=== PATIENT | male | born 1980 | race Caucasian/White ===

== ENCOUNTER → 2016-02-18 | Outpatient (CLI) | payer OTHER ==
[~2016-02-18] MED LIST: BISA-16 PO; BUPR8MIS PO; LISI-461 PO; LORA24TA7 PO; MULTTAB58 PO
== END | disposition home or self-care (01) ==
LOC: C.PATHSPEC 17:44
PROVIDERS: ATTEND Urology
DX: Z30.2 Encounter for sterilization (principal)

== ENCOUNTER 2022-07-31 18:43 | Inpatient (IN) ==
--- NOTE | 2022-07-31 19:08 | Emergency Department Note ---
Impression & Plan Parainfluenza virus infection, Syncope, Alcohol use disorder, Chronic prescription opiate use, Sepsis ED Provider Note INFORMANT: Patient and patient's ED PROVIDER(S): Casa Johnson DO CHIEF COMPLAINT: Fever, syncope PLAN: Disposition: Admission Outpatient prescription management: [none] Discussion with: I spoke with the hospitalist, who will see the patient for admission/observation and further evaluation and consultation. MEDICAL DECISION MAKING: This is a 41-year-old male who presents to the ED with a chief complaint of a syncopal episode. The patient provides some of the history as does the . The patient states that he has been having allergy or cold-like symptoms recently over the past few days. He reports runny nose, sore throat and conges tion. The patient reports symptoms of feeling dehydrated and lightheaded for the past hour or so. He had subjective fevers today and was sweating a lot. He also had diarrhea the past couple of days. According to the , the patient was due to the bathroom after just getting up off the couch. He seemed to be walking wobbly and he suddenly passed out. She helped him to the ground. He did not get injured. He had a brief loss of consciousness for just seconds. He was sweaty at that time. She states that EMS was called. No tonic-clonic seizure-like activity. Did not bite his tongue or have incontinence. The did do a COVID test earlier today. This was at home and was negative. He reports a little chest pain. Does use Suboxone. Has history of hypertension. His vital signs reveal temperature of 38.1. Oxygen saturations are slightly low at 94%. Respiratory rate was 21. Blood pressure is normal. Heart rate was 112. Lungs are clear. Heart is tachycardic rate and regular rhythm. No rashes. No tick exposures. No headache. No meningismus. Throat is slightly dry. Complains of feeling thirsty. Abdomen is soft nontender. No injury. The patient does admit to drinking about 12 beers a day. The patient's EKG shows sinus rhythm with occasional PVC. Potassium was 3.3. Lactic acid is elevated 3.8. Magnesium is low at 1.0. AST is elevated 205. Glucose is 175. Chest x- ray shows possible left lower lobe pneumonia. Procalcitonin is elevated which would correlate with a bacterial infection at 3.3. CBC did not show concerning leukocytosis or anemia. Patient's nasal swab come back positive for the parainfluenza virus. Troponin was negative for myocardial infarction or myocarditis. Alcohol level is 138. Lyme test was negative as was anaplasmosis. The patient was seen by the hospitalist for further evaluation and care. Patient was treated with IV antibiotics as well as IV fluids and IV Zofran. He was also given some IV Tylenol. He was given at least 30 cc/kg of IV fluids. I do not feel the symptoms that the patient had at home were related to seizure activity. Triage Nursing notes reviewed. Vital Signs: reviewed Prior /Outside records reviewed: [none] Differential diagnosis: Differential includes acute coronary syndrome, myocardial infarction, CVA, TIA, anemia, infection, pneumonia, UTI, pyelonephritis, poor nutrition, dehydration, electrolyte disturbance,hypoglycemia. Diagnostics, as interpreted by me: 12 lead ECG: Sinus rhythm at a rate of 91 with a PVC. No ST elevation. Normal QTc Cardiac Monitoring ordered: Sinus rhythm in the 90s. Medical decision rules: [none] Imaging studies: Chest x-ray: Questionable left lower lobe pneumonia Procedures: none. Critical care: none. HPI: See MDM above. PAST MEDICAL HISTORY: See Below PAST SURGICAL HISTORY: See Below SOCIAL HISTORY: See Below HOME MEDICATIONS:See Below ALLERGIES: See Below VITALS: See Below PHYSICAL EXAMINATION: See MDM for positive findings otherwise unremarkable. CONSTITUTIONAL/VITAL SIGNS: Reviewed GENERAL:done as appropriate INTEGUMENTARY: done as appropriate HEAD: done as appropriate EYES: done as appropriate RESPIRATORY: done as appropriate CARDIOVASCULAR:done as appropriate GI/ABDOMEN:done as appropriate EXTREMITIES: done as appropriate NEUROLOGICAL: done as appropriate PSYCHIATRIC:done as appropriate MUSCULOSKELETAL:done as appropriate TRIAGE NURSING DOCUMENTATION REVIEWED. Past Med/Surg History Social History Smoking Status: Current every day smoker Tobacco Type: E-cigarettes / Vaping Preferred Language: Indian Feels Safe at Home: Yes Allergies Allergies Allergy/AdvReac Type Severity Reaction Status Date / Time pollen extracts Allergy Intermediate SNEEZING, Verified 07/31/22 20:03 CONGESTION Home Meds Home Medications Medication Instructions Recorded Confirmed Unknown B/P Med 1 tab PO DAILY 07/31/22 07/31/22 buprenorphine 8 mg-naloxone 2 mg 1 film buccal DAILY 07/31/22 07/31/22 sublingual film (Suboxone) montelukast 10 mg tablet 10 mg PO DAILY 07/31/22 07/31/22 (Singulair) Results & Data (ED) Vital Signs Vital Signs - 24 hr 07/31/22 18:49 07/31/22 18:54 07/31/22 19:35 Temperature 38.1 C H Temperature Source Oral Pulse Rate 112 H 114 H Pulse Rhythm Regular Pulse Strength Normal Respiratory Rate 21 Respiratory Effort / Characteristics Non-Labored Spontaneous Respiratory Depth Normal Respiratory Pattern Regular Blood Pressure 138/82 Blood Pressure Mean 100 Blood Pressure Position Lying Pulse Oximetry 94 94 Oxygen Delivery Method Room Air Room Air Sepsis Recent Fever Within 48 Hours Yes Sepsis New/Unexplained Change in Mental Status N/A Sepsis Action Taken by Nursing Physician Notified 07/31/22 19:00 07/31/22 19:30 07/31/22 20:00 Temperature Temperature Source Pulse Rate 105 H 105 H 103 H Pulse Rhythm Pulse Strength Respiratory Rate 14 18 20 Respiratory Effort / Characteristics Respiratory Depth Respiratory Pattern Blood Pressure 128/86 132/85 138/82 Blood Pressure Mean 100 100 100 Blood Pressure Position Pulse Oximetry 94 95 92 Oxygen Delivery Method Sepsis Recent Fever Within 48 Hours Sepsis New/Unexplained Change in Mental Status Sepsis Action Taken by Nursing 07/31/22 20:30 07/31/22 20:38 07/31/22 21:01 Temperature 37.7 C H Temperature Source Pulse Rate 85 92 H Pulse Rhythm Pulse Strength Respiratory Rate 20 20 Respiratory Effort / Characteristics Respiratory Depth Respiratory Pattern Blood Pressure 137/79 132/72 Blood Pressure Mean 98 92 Blood Pressure Position Pulse Oximetry 92 94 Oxygen Delivery Method Sepsis Recent Fever Within 48 Hours Sepsis New/Unexplained Change in Mental Status Sepsis Action Taken by Nursing Laboratory Data 07/31/22 19:07 07/31/22 19:07 Lab Results 07/31/22 07/31/22 07/31/22 Range/Units 19:07 19:07 19:07 WBC 7.56 (4.8-10.8) K/ul RBC 4.21 L (4.70-6.10) M/uL Hgb 14.9 (14.0-18.0) g/dl Hct 42.0 (42.0-52.0) % MCV 99.8 (80.0-100.0) fL MCH 35.4 H (25.0-34.0) pg MCHC 35.5 (32.0-36.0) g/dL RDW Std Deviation 45.6 (36.4-46.3) fL RDW Coeff of Cyndy 12.4 (11.5-14.5) % Plt Count 51 L (130-400) K/uL MPV 11.4 (9.4-12.4) fL Immature Gran % (Auto) 0.7 % Neut % (Auto) 85.9 % Lymph % (Auto) 4.4 % [place] % (Auto) 8.9 % Eos % (Auto) 0.0 % Baso % (Auto) 0.1 % Neut # (Auto) 6.50 (1.40-6.50) K/uL Lymph # (Auto) 0.33 L (1.2-3.4) K/uL [place] # (Auto) 0.67 H (0.11-0.59) K/uL Eos # (Auto) 0.00 (0-0.50) K/uL Baso # (Auto) 0.01 (0-0.2) K/uL Immature Gran # (Auto) 0.05 (0.01-0.20) K/uL PT (9.0-12.0) Seconds INR (0.9-1.1) APTT (21.0-31.0) Seconds PTT Ratio Sodium 132 L (136-145) mmol/L Potassium 3.3 L (3.5-5.1) mmol/L Chloride 98 (98-107) mmol/L Carbon Dioxide 20 L (21-32) mmol/L Anion Gap 14 H (3-11) BUN 5 L (6-23) mg/dl Creatinine 0.70 (0.6-1.4) mg/dl Est Cr Clr Drug Dosing 142.7 ml/min Est GFR ( Amer) 134.0 ml/min Est GFR (Non-Af Amer) 115.6 ml/min BUN/Creatinine Ratio 7.1 L (10-20) Glucose 175 H (70-99(Fasting)) mg/dl Lactate 3.8 H* (0.4-2.0) mmol/L Calcium 8.4 L (8.6-10.3) mg/dl Magnesium 1.0 L (1.7-2.4) mg/dl Total Bilirubin 0.7 (0.2-1.0) mg/dl Direct Bilirubin 0.3 H (0-0.2) mg/dl AST 203 H (13-39) U/L ALT 52 (7-52) U/L Alkaline Phosphatase 136 H (34-104) U/L Troponin I High Sens 10.4 (0-20) pg/ml Total Protein 7.4 (6.0-8.3) gm/dl Albumin 4.0 (3.4-5.0) gm/dl Procalcitonin (0-0.5) ng/ml Urine Color Urine Appearance (Clear) Urine pH (4.5-7.5) Ur Specific [place] (1.000-1.030) Urine Protein (Negative) Urine Glucose (UA) (Negative) Urine Ketones (Negative) Urine Blood (Negative) Urine Nitrite (Negative) Urine Bilirubin (Negative) Urine Urobilinogen (Negative) Ur Leukocyte Esterase (Negative) Urine WBC (Auto) (0-5) /hpf Urine RBC (Auto) (0-4) /hpf U Hyaline Cast (Auto) (0-5) /lpf U Epithel Cells (Auto) (0-5) /lpf Urine Bacteria (Auto) (Negative) Ethyl Alcohol mg/dL (<10.0) mg/dl Adenovirus (PCR) (NotDetected) Anaplasma Smear See Comment B. pertussis DNA (PCR) (NotDetected) B.parapertussis DNA PCR (NotDetected) Lyme Disease IgG Ab (Negative) Lyme Disease IgM Ab (Negative) C. pneumoniae DNA (PCR) (NotDetected) Coronavirus OC43 (PCR) (NotDetected) Coronavirus HKU1 (PCR) (NotDetected) Coronavirus 229E (PCR) (NotDetected) SARS-CoV-2 (PCR) (NotDetected) Coronavirus NL63 (PCR) (NotDetected) Human Metapneumovir PCR (NotDetected) Influenza Type A (PCR) (NotDetected) Influenza Type B (PCR) (NotDetected) M. pneumoniae (PCR) (NotDetected) Parainfluenza 1 (PCR) (NotDetected) Parainfluenza 2 (PCR) (NotDetected) Parainfluenza 3 (PCR) (NotDetected) Parainfluenza 4 (PCR) (NotDetected) RSV (PCR) (NotDetected) Entero/Rhino (PCR) (NotDetected) 07/31/22 07/31/22 07/31/22 Range/Units 19:07 19:07 19:07 WBC (4.8-10.8) K/ul RBC (4.70-6.10) M/uL Hgb (14.0-18.0) g/dl Hct (42.0-52.0) % MCV (80.0-100.0) fL MCH (25.0-34.0) pg MCHC (32.0-36.0) g/dL RDW Std Deviation (36.4-46.3) fL RDW Coeff of Cyndy (11.5-14.5) % Plt Count (130-400) K/uL MPV (9.4-12.4) fL Immature Gran % (Auto) % Neut % (Auto) % Lymph % (Auto) % [place] % (Auto) % Eos % (Auto) % Baso % (Auto) % Neut # (Auto) (1.40-6.50) K/uL Lymph # (Auto) (1.2-3.4) K/uL [place] # (Auto) (0.11-0.59) K/uL Eos # (Auto) (0-0.50) K/uL Baso # (Auto) (0-0.2) K/uL Immature Gran # (Auto) (0.01-0.20) K/uL PT (9.0-12.0) Seconds INR (0.9-1.1) APTT (21.0-31.0) Seconds PTT Ratio Sodium (136-145) mmol/L Potassium (3.5-5.1) mmol/L Chloride (98-107) mmol/L Carbon Dioxide (21-32) mmol/L Anion Gap (3-11) BUN (6-23) mg/dl Creatinine (0.6-1.4) mg/dl Est Cr Clr Drug Dosing ml/min Est GFR ( Amer) ml/min Est GFR (Non-Af Amer) ml/min BUN/Creatinine Ratio (10-20) Glucose (70-99(Fasting)) mg/dl Lactate (0.4-2.0) mmol/L Calcium (8.6-10.3) mg/dl Magnesium (1.7-2.4) mg/dl Total Bilirubin (0.2-1.0) mg/dl Direct Bilirubin (0-0.2) mg/dl AST (13-39) U/L ALT (7-52) U/L Alkaline Phosphatase (34-104) U/L Troponin I High Sens (0-20) pg/ml Total Protein (6.0-8.3) gm/dl Albumin (3.4-5.0) gm/dl Procalcitonin 3.83 H (0-0.5) ng/ml Urine Color Urine Appearance (Clear) Urine pH (4.5-7.5) Ur Specific [place] (1.000-1.030) Urine Protein (Negative) Urine Glucose (UA) (Negative) Urine Ketones (Negative) Urine Blood (Negative) Urine Nitrite (Negative) Urine Bilirubin (Negative) Urine Urobilinogen (Negative) Ur Leukocyte Esterase (Negative) Urine WBC (Auto) (0-5) /hpf Urine RBC (Auto) (0-4) /hpf U Hyaline Cast (Auto) (0-5) /lpf U Epithel Cells (Auto) (0-5) /lpf Urine Bacteria (Auto) (Negative) Ethyl Alcohol mg/dL 138.7 H (<10.0) mg/dl Adenovirus (PCR) (NotDetected) Anaplasma Smear Cancelled B. pertussis DNA (PCR) (NotDetected) B.parapertussis DNA PCR (NotDetected) Lyme Disease IgG Ab Negative (Negative) Lyme Disease IgM Ab Negative (Negative) C. pneumoniae DNA (PCR) (NotDetected) Coronavirus OC43 (PCR) (NotDetected) Coronavirus HKU1 (PCR) (NotDetected) Coronavirus 229E (PCR) (NotDetected) SARS-CoV-2 (PCR) (NotDetected) Coronavirus NL63 (PCR) (NotDetected) Human Metapneumovir PCR (NotDetected) Influenza Type A (PCR) (NotDetected) Influenza Type B (PCR) (NotDetected) M. pneumoniae (PCR) (NotDetected) Parainfluenza 1 (PCR) (NotDetected) Parainfluenza 2 (PCR) (NotDetected) Parainfluenza 3 (PCR) (NotDetected) Parainfluenza 4 (PCR) (NotDetected) RSV (PCR) (NotDetected) Entero/Rhino (PCR) (NotDetected) 07/31/22 07/31/22 07/31/22 Range/Units 19:10 19:20 20:30 WBC (4.8-10.8) K/ul RBC (4.70-6.10) M/uL Hgb (14.0-18.0) g/dl Hct (42.0-52.0) % MCV (80.0-100.0) fL MCH (25.0-34.0) pg MCHC (32.0-36.0) g/dL RDW Std Deviation (36.4-46.3) fL RDW Coeff of Cyndy (11.5-14.5) % Plt Count (130-400) K/uL MPV (9.4-12.4) fL Immature Gran % (Auto) % Neut % (Auto) % Lymph % (Auto) % [place] % (Auto) % Eos % (Auto) % Baso % (Auto) % Neut # (Auto) (1.40-6.50) K/uL Lymph # (Auto) (1.2-3.4) K/uL [place] # (Auto) (0.11-0.59) K/uL Eos # (Auto) (0-0.50) K/uL Baso # (Auto) (0-0.2) K/uL Immature Gran # (Auto) (0.01-0.20) K/uL PT 11.2 (9.0-12.0) Seconds INR 1.0 (0.9-1.1) APTT 29.9 (21.0-31.0) Seconds PTT Ratio 1.1 Sodium (136-145) mmol/L Potassium (3.5-5.1) mmol/L Chloride (98-107) mmol/L Carbon Dioxide (21-32) mmol/L Anion Gap (3-11) BUN (6-23) mg/dl Creatinine (0.6-1.4) mg/dl Est Cr Clr Drug Dosing ml/min Est GFR ( Amer) ml/min Est GFR (Non-Af Amer) ml/min BUN/Creatinine Ratio (10-20) Glucose (70-99(Fasting)) mg/dl Lactate (0.4-2.0) mmol/L Calcium (8.6-10.3) mg/dl Magnesium (1.7-2.4) mg/dl Total Bilirubin (0.2-1.0) mg/dl Direct Bilirubin (0-0.2) mg/dl AST (13-39) U/L ALT (7-52) U/L Alkaline Phosphatase (34-104) U/L Troponin I High Sens (0-20) pg/ml Total Protein (6.0-8.3) gm/dl Albumin (3.4-5.0) gm/dl Procalcitonin (0-0.5) ng/ml Urine Color Yellow Urine Appearance Turbid A (Clear) Urine pH 6.5 (4.5-7.5) Ur Specific [place] 1.009 (1.000-1.030) Urine Protein Negative (Negative) Urine Glucose (UA) Negative (Negative) Urine Ketones Negative (Negative) Urine Blood Negative (Negative) Urine Nitrite Negative (Negative) Urine Bilirubin Negative (Negative) Urine Urobilinogen Negative (Negative) Ur Leukocyte Esterase Negative (Negative) Urine WBC (Auto) 1-5 (0-5) /hpf Urine RBC (Auto) 0-4 (0-4) /hpf U Hyaline Cast (Auto) 1-5 (0-5) /lpf U Epithel Cells (Auto) 10-20 H (0-5) /lpf Urine Bacteria (Auto) Negative (Negative) Ethyl Alcohol mg/dL (<10.0) mg/dl Adenovirus (PCR) Not Detected (NotDetected) Anaplasma Smear B. pertussis DNA (PCR) Not Detected (NotDetected) B.parapertussis DNA PCR Not Detected (NotDetected) Lyme Disease IgG Ab (Negative) Lyme Disease IgM Ab (Negative) C. pneumoniae DNA (PCR) Not Detected (NotDetected) Coronavirus OC43 (PCR) Not Detected (NotDetected) Coronavirus HKU1 (PCR) Not Detected (NotDetected) Coronavirus 229E (PCR) Not Detected (NotDetected) SARS-CoV-2 (PCR) Not Detected (NotDetected) Coronavirus NL63 (PCR) Not Detected (NotDetected) Human Metapneumovir PCR Not Detected (NotDetected) Influenza Type A (PCR) Not Detected (NotDetected) Influenza Type B (PCR) Not Detected (NotDetected) M. pneumoniae (PCR) Not Detected (NotDetected) Parainfluenza 1 (PCR) Not Detected (NotDetected) Parainfluenza 2 (PCR) DETECTED A* (NotDetected) Parainfluenza 3 (PCR) Not Detected (NotDetected) Parainfluenza 4 (PCR) Not Detected (NotDetected) RSV (PCR) Not Detected (NotDetected) Entero/Rhino (PCR) Not Detected (NotDetected) 07/31/22 07/31/22 Range/Units 21:03 21:03 WBC (4.8-10.8) K/ul RBC (4.70-6.10) M/uL Hgb (14.0-18.0) g/dl Hct (42.0-52.0) % MCV (80.0-100.0) fL MCH (25.0-34.0) pg MCHC (32.0-36.0) g/dL RDW Std Deviation (36.4-46.3) fL RDW Coeff of Cyndy (11.5-14.5) % Plt Count (130-400) K/uL MPV (9.4-12.4) fL Immature Gran % (Auto) % Neut % (Auto) % Lymph % (Auto) % [place] % (Auto) % Eos % (Auto) % Baso % (Auto) % Neut # (Auto) (1.40-6.50) K/uL Lymph # (Auto) (1.2-3.4) K/uL [place] # (Auto) (0.11-0.59) K/uL Eos # (Auto) (0-0.50) K/uL Baso # (Auto) (0-0.2) K/uL Immature Gran # (Auto) (0.01-0.20) K/uL PT (9.0-12.0) Seconds INR (0.9-1.1) APTT (21.0-31.0) Seconds PTT Ratio Sodium (136-145) mmol/L Potassium (3.5-5.1) mmol/L Chloride (98-107) mmol/L Carbon Dioxide (21-32) mmol/L Anion Gap (3-11) BUN (6-23) mg/dl Creatinine (0.6-1.4) mg/dl Est Cr Clr Drug Dosing ml/min Est GFR ( Amer) ml/min Est GFR (Non-Af Amer) ml/min BUN/Creatinine Ratio (10-20) Glucose (70-99(Fasting)) mg/dl Lactate 2.4 H* (0.4-2.0) mmol/L Calcium (8.6-10.3) mg/dl Magnesium (1.7-2.4) mg/dl Total Bilirubin (0.2-1.0) mg/dl Direct Bilirubin (0-0.2) mg/dl AST (13-39) U/L ALT (7-52) U/L Alkaline Phosphatase (34-104) U/L Troponin I High Sens 9.6 (0-20) pg/ml Total Protein (6.0-8.3) gm/dl Albumin (3.4-5.0) gm/dl Procalcitonin (0-0.5) ng/ml Urine Color Urine Appearance (Clear) Urine pH (4.5-7.5) Ur Specific [place] (1.000-1.030) Urine Protein (Negative) Urine Glucose (UA) (Negative) Urine Ketones (Negative) Urine Blood (Negative) Urine Nitrite (Negative) Urine Bilirubin (Negative) Urine Urobilinogen (Negative) Ur Leukocyte Esterase (Negative) Urine WBC (Auto) (0-5) /hpf Urine RBC (Auto) (0-4) /hpf U Hyaline Cast (Auto) (0-5) /lpf U Epithel Cells (Auto) (0-5) /lpf Urine Bacteria (Auto) (Negative) Ethyl Alcohol mg/dL (<10.0) mg/dl Adenovirus (PCR) (NotDetected) Anaplasma Smear B. pertussis DNA (PCR) (NotDetected) B.parapertussis DNA PCR (NotDetected) Lyme Disease IgG Ab (Negative) Lyme Disease IgM Ab (Negative) C. pneumoniae DNA (PCR) (NotDetected) Coronavirus OC43 (PCR) (NotDetected) Coronavirus HKU1 (PCR) (NotDetected) Coronavirus 229E (PCR) (NotDetected) SARS-CoV-2 (PCR) (NotDetected) Coronavirus NL63 (PCR) (NotDetected) Human Metapneumovir PCR (NotDetected) Influenza Type A (PCR) (NotDetected) Influenza Type B (PCR) (NotDetected) M. pneumoniae (PCR) (NotDetected) Parainfluenza 1 (PCR) (NotDetected) Parainfluenza 2 (PCR) (NotDetected) Parainfluenza 3 (PCR) (NotDetected) Parainfluenza 4 (PCR) (NotDetected) RSV (PCR) (NotDetected) Entero/Rhino (PCR) (NotDetected) Administered Medications Discontinued Medications Azithromycin (Azithromycin 250 Mg Tab) 500 mg PO NOW STA Stop: 07/31/22 21:14 Last Admin: 07/31/22 21:23 Dose: 500 mg Documented By: CELIO Sodium Chloride (Nss 1000ml) 1,000 mls @ 999 mls/hr IV .Q1H1M VON Stop: 07/31/22 20:15 Last Infusion: 07/31/22 20:46 Dose: 0 mls/hr Documented By: Admin: 07/31/22 19:58 Dose: 999 mls/hr Documented By: CELIO Sodium Chloride (Nss 1000ml) 500 mls @ 999 mls/hr IV .Q31M VON Stop: 07/31/22 19:45 Last Infusion: 07/31/22 19:58 Dose: 0 mls/hr Documented By: Admin: 07/31/22 19:33 Dose: 999 mls/hr Documented By: CELIO Acetaminophen (Ofirmev) 1,000 mg in 100 mls @ 400 mls/hr IV NOW STA Stop: 07/31/22 20:16 Last Infusion: 07/31/22 20:32 Dose: 0 mls/hr Documented By: Admin: 07/31/22 20:17 Dose: 400 mls/hr Documented By: CELIO Cefepime HCl (Maxipime) 2,000 mg in 20 mls @ 5 mls/min IV NOW STA; Protocol Stop: 07/31/22 20:25 Last Admin: 07/31/22 20:37 Dose: 5 mls/min Documented By: CELIO Sodium Chloride (Nss 1000ml) 1,000 mls @ 999 mls/hr IV .Q1H1M ONE Stop: 07/31/22 21:24 Last Infusion: 07/31/22 21:44 Dose: 0 mls/hr Documented By: Admin: 07/31/22 20:46 Dose: 999 mls/hr Documented By: CELIO Magnesium Sulfate/Dextrose (Magnesium Sulfate / D5w) 1 gm in 100 mls @ 200 mls/hr IV Q30M VON Stop: 07/31/22 21:36 Last Admin: 07/31/22 21:23 Dose: 100 mls/hr Documented By: Infusion: 07/31/22 21:22 Dose: 0 mls/hr Documented By: Admin: 07/31/22 20:40 Dose: 200 mls/hr Documented By: CELIO Ondansetron HCl (Ondansetron Inj 2 Mg/Ml 2 Ml Vial) 4 mg IV NOW STA Stop: 07/31/22 20:10 Last Admin: 07/31/22 20:12 Dose: 4 mg Documented By: ADRIENNE Potassium Chloride (Potassium Chloride Crtab 20 Meq Tabcr) 20 meq PO NOW STA Stop: 07/31/22 21:04 Last Admin: 07/31/22 21:22 Dose: 20 meq Documented By: CELIO Imaging Data Radiologist's Impression: Chest X-Ray 07/31/22 19:01 SINGLE VIEW CHEST CLINICAL HISTORY: Sepsis. FINDINGS: An AP, portable, upright chest radiograph is obtained. No prior studies are available for comparison at the time of dictation. The cardiomediastinal silhouette is unremarkable. There are left basilar opacities. No large pleural effusion or pneumothorax is seen. The bony thorax is grossly intact. IMPRESSION: Mild left basilar opacities likely represent atelectasis. Correlate clinically. ACT 112: Negative or not required by law. Electronically signed by: Bryon Charlton M.D. 07/31/2022 8:00 PM Discharge Plan Visit Data Chief Complaint: Seizure ED Provider: [facility] Discharge Problem: Parainfluenza virus infection, Syncope, Alcohol use disorder, Chronic prescription opiate use, Sepsis Patient Disposition: Admitted As Inpatient Discharge Instructions Interventions: ED Discharge Assessment Last Done: 07/31/22 21:35
[2022-07-31] MEDS ORDERED: SODIUM CHLORIDE 0.9% 1000ML 500 ML IV SCH (19:15)
[2022-07-31] MEDS ORDERED: SODIUM CHLORIDE 0.9% 1000ML 1,000 ML IV SCH (19:15)
--- NOTE | 2022-07-31 20:01 | XRay Report ---
SINGLE VIEW CHEST CLINICAL HISTORY: Sepsis. FINDINGS: An AP, portable, upright chest radiograph is obtained. No prior studies are available for c omparison at the time of dictation. The cardiomediastinal silhouette is unremarkable. There are left basilar opacities. No large pleural effusion or pneumothorax is seen. The bony thorax is grossly inta ct. IMPRESSION: Mild left basilar opacities likely represent atelectasis. Correlate clinically. ACT 112: Negative or not required by law. Electronically signed by: Bryon Charlton M.D. 07/31/2022 8:00 PM
[2022-07-31 20:02] LABS: BUN Creatinine Ratio 7.1 (10-20); Bilirubin Direct 0.3 mg/dl (0-0.2); Bilirubin,Total 0.7 mg/dl (0.2-1.0); Calcium 8.4 mg/dl (8.6-10.3); Creatinine Clr Calc Pharmacy 142.7 ml/min; Est GFR (Non-African American) 115.6 ml/min; Potassium 3.3 mmol/L (3.5-5.1); Total Protein 7.4 gm/dl (6.0-8.3)
[2022-07-31] MEDS ORDERED: ACETAMINOPHEN 1,000 MG/100 ML VIAL IV STA (20:02)
[2022-07-31 20:09] LABS: Adenovirus PCR Not Detected (NotDetected); Bordetella parapertussis PCR Not Detected (NotDetected); Bordetella pertussis PCR Not Detected (NotDetected); Chlamydia pneumoniae PCR Not Detected (NotDetected); Coronavirus 229E PCR Not Detected (NotDetected); Coronavirus CoV-2 (COVID19)PCR Not Detected (NotDetected); Coronavirus HKU1 PCR Not Detected (NotDetected); Coronavirus NL63 PCR Not Detected (NotDetected); Coronavirus OC43PCR Not Detected (NotDetected); Human Metapneumovirus PCR Not Detected (NotDetected); Influenza A PCR Not Detected (NotDetected); Influenza B PCR Not Detected (NotDetected); Mycoplasma pneumoniae PCR Not Detected (NotDetected); Parainfluenza Virus 1 PCR Not Detected (NotDetected); Parainfluenza Virus 3 PCR Not Detected (NotDetected); Parainfluenza Virus 4 PCR Not Detected (NotDetected); Respiratory Syncytial VirusPCR Not Detected (NotDetected); Rhinovirus/Enterovirus PCR Not Detected (NotDetected)
[2022-07-31] MEDS ORDERED: ONDANSETRON INJ 2 MG/ML 2 ML VIAL IV STA (20:09)
[2022-07-31 20:10] LABS: Troponin I High Sensitivity 10.4 pg/ml (0-20)
[2022-07-31 20:13] LABS: Basophils # (auto) 0.01 K/uL (0-0.2); Basophils % (auto) 0.1 %; Hemoglobin 14.9 g/dl (14.0-18.0); Immature Granulocytes # (auto) 0.05 K/uL (0.01-0.20); Immature Granulocytes % (auto) 0.7 %; Lymphocytes # (auto) 0.33 K/uL (1.2-3.4); Lymphocytes % (auto) 4.4 %; Mean Corpuscular Hemoglobin 35.4 pg (25.0-34.0); Mean Corpuscular Hgb Conc 35.5 g/dL (32.0-36.0); Mean Corpuscular Volume 99.8 fL (80.0-100.0); Mean Platelet Volume 11.4 fL (9.4-12.4); Monocytes # (auto) 0.67 K/uL (0.11-0.59); Monocytes % (auto) 8.9 %; Neutrophils % (auto) 85.9 %; Platelet Count 51 K/uL (130-400); RDW Coefficient of Variation 12.4 % (11.5-14.5); RDW Standard Deviation 45.6 fL (36.4-46.3); Red Blood Count 4.21 M/uL (4.70-6.10); White Blood Count 7.56 K/ul (4.8-10.8)
[2022-07-31 20:18] LABS: Procalcitonin 3.83 ng/ml (0-0.5)
[2022-07-31 20:21] LABS: Parainfluenza Virus 2 PCR DETECTED (NotDetected)
[2022-07-31] MEDS ORDERED: CEFEPIME 2,000 MG/20 ML VIAL IV STA (20:22)
[2022-07-31 20:24] LABS: Lyme Ab IgG w/WB Rflx Negative (Negative); Lyme Ab IgM w/WB Rflx Negative (Negative)
[2022-07-31] MEDS ORDERED: SODIUM CHLORIDE 0.9% 1000ML 1,000 ML IV ONE (20:24)
[2022-07-31] MEDS: MAGNESIUM SULFATE / D5W 1 GM/100 ML BAG IV SCH ×2 (20:40→21:23)
[2022-07-31 20:48] LABS: Appearance Urine Turbid (Clear); Bacteria Urine Automated Negative (Negative); Bilirubin Urine Negative (Negative); Blood Urine Negative (Negative); Color Urine Yellow; Glucose Urine UA Negative (Negative); Ketones Urine Negative (Negative); Leukocyte Esterase Urine Negative (Negative); Nitrite Urine Negative (Negative); Protein Urine Negative (Negative); RBC Urine Automated 0-4 /hpf (0-4); Specific Gravity Urine 1.009 (1.000-1.030); Urobilinogen Urine Negative (Negative); pH Urine 6.5 (4.5-7.5)
[2022-07-31] MEDS ORDERED: POTASSIUM CHLORIDE CRTAB 20 MEQ TABCR PO STA (21:03)
--- NOTE | 2022-07-31 21:08 | History & Physical Report ---
Date of Service July 31, 2022 Assessment & Plan (1) Syncope: Plan: Suspect due to alcohol use in setting of infection CT head EKG unremarkable No seizure like activity Hold lisinopril in case of orthostasis Monitor for recurrence (2) Sepsis: Plan: Meets SIRS criteria on evaluation in the ER with Temp 38.1 degrees celsius and HR 112 ?source parainfluenza virus vs. bacterial PNA Procalcitonin 3.83 - give high risk with alcohol use will cover for aspiration and PNA with Unasyn and azithromycin Follow up blood cultures MRSA swab to assess need to cover for this (3) Alcohol use disorder: Plan: Patient has no interest in quitting. He is awake and not confused with an alcohol level 138.7 mg/dL on admission. Discussed options of withdrawal with benzodiazepines to help him through this vs. using alcohol as inpatient and he wishes to drink alcohol, he also notes previous bad reactions to lorazepam Beer q2h PRN - please have available for patient to self administer as long as he is not becoming more sedated Continue AWSS with notification parameters INR 1.0, Plt 51 (4) Chronic prescription opiate use: Plan: Continue Suboxone to avoid withdrawal (5) Parainfluenza virus infection: Plan: Contact isolation precautions Symptomatic care (6) Hypertension: Plan: Hold lisinopril as above (7) Thrombocytopenia: Plan: Plt 51 ?alcohol use vs parainfluenza virus (8) Elevated AST (SGOT): Plan: Suspect due to alcohol use. Repeat level in AM Plan VTE Prophylaxis - deferred given thrombocytopenia Diet - regular Disposition - admit to med/tele Admission and Anticipated Discharge Date Admission Date: July 31, 2022 History of Present Illness Chief Complaint: Syncope Primary Care Provider: Myles Mack MD Freddie Whitfield is a 41 year old male who presents to the ER with a syncopal event earlier today. He does not remember the event but history was taken from his earlier in the day by the ER physician and reports an episode of syncope without seizure-like activity when he when walking to the bathroom. He reports dizziness prior to the syncopal episode. He is unsure if he hit his head but did loose consciousness for seconds. He currently feels mostly back to his normal self although he has been unwell for the last few days with generalized weakness and chills. He denies any sinus pain, worsening nasal congestion (reportedly having for months due to allergies), shortness of breath or cough. No urinary symptoms, nausea, vomiting, abdominal pain or change in bowel habit. He is a current smoker and drinks 12 beers/day. He has not had a significant break in drinking alcohol for years. Reportedly previously been to drug and alcohol rehabilitation but cannot tell me when that was. No prior alcohol withdrawal noted by the patient. Allergies Allergy/AdvReac Type Severity Reaction Status Date / Time pollen extracts Allergy Intermediate SNEEZING, Verified 07/31/22 20:03 CONGESTION Home Medications Medication Instructions Recorded Confirmed Type buprenorphine 8 mg-naloxone 2 mg 1 film buccal DAILY 07/31/22 07/31/22 History sublingual film (Suboxone) lisinopril 20 mg tablet 20 mg PO QAM 07/31/22 07/31/22 History montelukast 10 mg tablet 10 mg PO DAILY 07/31/22 07/31/22 History (Singulair) Past Med/Surg History Medical History (Updated 08/01/22 @ 07:18 by Jose Monroy MD) Alcohol use disorder Chronic prescription opiate use Hypertension Surgical History (Updated 07/31/22 @ 22:19 by Jose Monroy MD) History of arthroscopic knee surgery History of hernia repair Social History Smoking Status: Current every day smoker Tobacco Type: E-cigarettes / Vaping Preferred Language: Occitan Feels Safe at Home: Yes Review of Systems Review of Systems: All systems reviewed & are unremarkable except as noted in HPI & below Physical Exam Constitutional: well developed; + not well nourished and no acute distress Eyes: PERRL, conjunctivae normal, anicteric sclerae ENMT: external ear and nose normal, oropharynx normal Mouth: oral mucous membranes not dry Respiratory: normal respiratory effort, lungs clear to auscultation Cardiovascular: RRR, no murmur, no edema Gastrointestinal (Abdomen): normal bowel sounds, soft, nontender, no hepatosplenomegaly Musculoskeletal: no cyanosis or clubbing, extremities motor strength 5/5 Neurologic: moves all extremities and awake; no focal motor deficits and not confused Speech / Cognition: normal speech Motor/Sensory: no pronator drift Psychiatric: A+Ox3, euthymic affect Genitourinary: no CVA tenderness Results & Data Results & Data Vital Signs (Past 12 Hours) Vital Signs Temp Pulse Resp BP Pulse Ox O2 Del Method 07/31/22 20:38 37.7 C H 07/31/22 20:30 85 20 137/79 92 07/31/22 20:00 103 H 20 138/82 92 07/31/22 19:30 105 H 18 132/85 95 07/31/22 19:00 105 H 14 128/86 94 07/31/22 19:35 94 Room Air 07/31/22 18:54 114 H 07/31/22 18:49 38.1 C H 112 H 21 138/82 94 Room Air Laboratory Results Abnormal lab results 07/31/22 07/31/22 07/31/22 Range/Units 19:07 19:07 19:07 RBC 4.21 L (4.70-6.10) M/uL MCH 35.4 H (25.0-34.0) pg Plt Count 51 L (130-400) K/uL Lymph # (Auto) 0.33 L (1.2-3.4) K/uL Bradford # (Auto) 0.67 H (0.11-0.59) K/uL Sodium 132 L (136-145) mmol/L Potassium 3.3 L (3.5-5.1) mmol/L Carbon Dioxide 20 L (21-32) mmol/L Anion Gap 14 H (3-11) BUN 5 L (6-23) mg/dl BUN/Creatinine Ratio 7.1 L (10-20) Glucose 175 H (70-99(Fasting)) mg/dl Lactate 3.8 H* (0.4-2.0) mmol/L Calcium 8.4 L (8.6-10.3) mg/dl Magnesium 1.0 L (1.7-2.4) mg/dl Direct Bilirubin 0.3 H (0-0.2) mg/dl AST 203 H (13-39) U/L Alkaline Phosphatase 136 H (34-104) U/L Procalcitonin (0-0.5) ng/ml Urine Appearance (Clear) U Epithel Cells (Auto) (0-5) /lpf Ethyl Alcohol mg/dL (<10.0) mg/dl Parainfluenza 2 (PCR) (NotDetected) 07/31/22 07/31/22 07/31/22 Range/Units 19:07 19:07 19:10 RBC (4.70-6.10) M/uL MCH (25.0-34.0) pg Plt Count (130-400) K/uL Lymph # (Auto) (1.2-3.4) K/uL Bradford # (Auto) (0.11-0.59) K/uL Sodium (136-145) mmol/L Potassium (3.5-5.1) mmol/L Carbon Dioxide (21-32) mmol/L Anion Gap (3-11) BUN (6-23) mg/dl BUN/Creatinine Ratio (10-20) Glucose (70-99(Fasting)) mg/dl Lactate (0.4-2.0) mmol/L Calcium (8.6-10.3) mg/dl Magnesium (1.7-2.4) mg/dl Direct Bilirubin (0-0.2) mg/dl AST (13-39) U/L Alkaline Phosphatase (34-104) U/L Procalcitonin 3.83 H (0-0.5) ng/ml Urine Appearance (Clear) U Epithel Cells (Auto) (0-5) /lpf Ethyl Alcohol mg/dL 138.7 H (<10.0) mg/dl Parainfluenza 2 (PCR) DETECTED A* (NotDetected) 07/31/22 Range/Units 20:30 RBC (4.70-6.10) M/uL MCH (25.0-34.0) pg Plt Count (130-400) K/uL Lymph # (Auto) (1.2-3.4) K/uL Bradford # (Auto) (0.11-0.59) K/uL Sodium (136-145) mmol/L Potassium (3.5-5.1) mmol/L Carbon Dioxide (21-32) mmol/L Anion Gap (3-11) BUN (6-23) mg/dl BUN/Creatinine Ratio (10-20) Glucose (70-99(Fasting)) mg/dl Lactate (0.4-2.0) mmol/L Calcium (8.6-10.3) mg/dl Magnesium (1.7-2.4) mg/dl Direct Bilirubin (0-0.2) mg/dl AST (13-39) U/L Alkaline Phosphatase (34-104) U/L Procalcitonin (0-0.5) ng/ml Urine Appearance Turbid A (Clear) U Epithel Cells (Auto) 10-20 H (0-5) /lpf Ethyl Alcohol mg/dL (<10.0) mg/dl Parainfluenza 2 (PCR) (NotDetected) Diagnostic Findings SINGLE VIEW CHEST CLINICAL HISTORY: Sepsis. FINDINGS: An AP, portable, upright chest radiograph is obtained. No prior studies are available for comparison at the time of dictation. The cardiomediastinal silhouette is unremarkable. There are left basilar opacities. No large pleural effusion or pneumothorax is seen. The bony thorax is grossly intact. IMPRESSION: Mild left basilar opacities likely represent atelectasis. Correlate clinically. Medications Administered ER Medications Given: NSS 1L bolus NSS 500ml bolus Acetaminophen 1000 mg IV Ondansetron 4mg IV Cefepime 2g IV Mg sulfate 1g IV x2 NSS 1L bolus ECG Rate (beats per minute): 99 Rhythm: normal sinus Findings: + PVC Comparison ECG Date: no prior available Code Status & VTE Plan Code Status Full PG Care Time/CCT Total # of Minutes Spent Total Time Spent with Patient: Total time spent is greater than 50% in coordination of care (as documented) at patient's floor/unit and/or counseling patient: Coding Level of Care Code 49714 INT INP/OBS CARE 3/75MIN Diagnoses Syncope R55 Sepsis A41.9 Alcohol use disorder F10.90 Chronic prescription opiate use Z79.891 Parainfluenza virus infection B34.8 Hypertension I10 Thrombocytopenia D69.6 Elevated AST (SGOT) R74.01
[2022-07-31] MEDS ORDERED: AZITHROMYCIN 250 MG TAB PO STA (21:13)
[2022-07-31 22:00] LABS: Partial Thromboplastin Ratio 1.1; Partial Thromboplastin Time 29.9 Seconds (21.0-31.0); Prothrombin Time 11.2 Seconds (9.0-12.0)
[2022-07-31] MEDS ORDERED: ONDANSETRON INJ 2 MG/ML 2 ML VIAL IV PRN (22:17)
[2022-07-31] MEDS: ACETAMINOPHEN 325 MG TAB PO PRN (22:56)
--- NOTE | 2022-07-31 23:05 | CT Scan Report ---
CT SCAN OF THE BRAIN WITHOUT IV CONTRAST CLINICAL HISTORY: Syncope. COMPARISON STUDY: No priors. TECHNIQUE: Unenhanced axial CT scan of the brain is performed from the vertex to the skull base. A d ose lowering technique was utilized adhering to the principles of ALARA. CT DOSE: 625.80 mGy.cm FINDINGS: Brain parenchyma: The brain parenchyma is normal in appearance. There is no hemorrhage, mass effect, or evidence of acute territorial ischemia by CT criteria. Carreon-white matter differentiation is preser judie. No extra-axial fluid collection is seen. Ventricles, sulci, cisterns: Normal in configuration. Intracranial vasculature: The visualized intracranial vasculature at the skull base is normal in appe arance. Calvarium: Unremarkable. Sinuses and mastoids: There is moderate mucosal thickening within the ethmoid sinuses. Trace mucosal thickening is seen in the sphenoid sinuses. The mastoid air cells are well pneumatized. Orbits: The bony orbits are grossly intact. IMPRESSION: No acute intracranial abnormality. ACT 112: Negative or not required by law. Electronically signed by: Bryon Charlton M.D. 07/31/2022 11:03 PM
[2022-08-01] MEDS ORDERED: hydrOXYzine HCl 25 MG TAB PO STA (00:06)
[2022-08-01] MEDS: AMPICILLIN/SULBACTAM SOD 3,000 MG in 0.9 % SODIUM CHLORIDE 100 ML IV SCH ×5 (00:50→21:17)
[2022-08-01] MEDS: THIAMINE HCL 200 MG in SODIUM CHLORIDE 0.9% 50 ML IV SCH ×4 (00:54→21:14)
[2022-08-01] MEDS: MAGNESIUM SULFATE / D5W 1 GM/100 ML BAG IV SCH ×2 (01:13→03:00)
[2022-08-01] MEDS: ACETAMINOPHEN 325 MG TAB PO PRN ×3 (04:28→16:01)
[2022-08-01 07:31] LABS: Basophils # (auto) 0.01 K/uL (0-0.2); Basophils % (auto) 0.1 %; Hematocrit (blood only) 38.1 % (42.0-52.0); Hemoglobin 13.3 g/dl (14.0-18.0); Immature Granulocytes # (auto) 0.13 K/uL (0.01-0.20); Immature Granulocytes % (auto) 1.2 %; Lymphocytes # (auto) 0.77 K/uL (1.2-3.4); Lymphocytes % (auto) 7.2 %; Mean Corpuscular Hemoglobin 34.8 pg (25.0-34.0); Mean Corpuscular Hgb Conc 34.9 g/dL (32.0-36.0); Mean Corpuscular Volume 99.7 fL (80.0-100.0); Mean Platelet Volume 11.7 fL (9.4-12.4); Monocytes # (auto) 0.91 K/uL (0.11-0.59); Monocytes % (auto) 8.6 %; Neutrophils # (auto) 8.81 K/uL (1.40-6.50); Neutrophils % (auto) 82.9 %; Platelet Count 46 K/uL (130-400); RDW Coefficient of Variation 12.4 % (11.5-14.5); RDW Standard Deviation 45.7 fL (36.4-46.3); Red Blood Count 3.82 M/uL (4.70-6.10); White Blood Count 10.63 K/ul (4.8-10.8)
[2022-08-01 07:44] LABS: Albumin Globulin Ratio 1.1 (0.9-2); Albumin Level 3.6 gm/dl (3.4-5.0); BUN Creatinine Ratio 8.2 (10-20); Bilirubin,Total 0.8 mg/dl (0.2-1.0); Calcium 8.4 mg/dl (8.6-10.3); Creatinine Clr Calc Pharmacy 179.6 ml/min; Est GFR (African American) 141.8 ml/min; Est GFR (Non-African American) 122.3 ml/min; Globulin 3.2 gm/dl (2.5-4.0); Total Protein 6.8 gm/dl (6.0-8.3)
[2022-08-01] MEDS: BUPRENORPHINE/NALOXONE 8/2 MG TAB SL SCH (08:11)
[2022-08-01] MEDS: AZITHROMYCIN 250 MG TAB PO SCH (08:11)
[2022-08-01] MEDS: MONTELUKAST SODIUM 10 MG TABLET PO SCH (08:11)
[2022-08-01] MEDS: BEER 1 CAN PO PRN ×5 (09:12→18:44)
[2022-08-01] MEDS ORDERED: BUPIVACAINE 0.5 % 5 MG/1 ML MPF 30ML VIAL ONE (11:08)
[2022-08-01] MEDS ORDERED: ceFAZolin 330 MG/ML 1 GM VIAL ONE (11:08)
--- NOTE | 2022-08-01 13:19 | Electrocardiogram Report ---
Test Reason : Blood Pressure : / mmHG Vent. Rate : 099 BPM Atrial Rate : 099 BPM P-R Int : 134 ms QRS Dur : 096 ms QT Int : 342 ms P-R-T Axes : 061 012 069 degrees QTc Int : 438 ms Sinus rhythm with occasional Premature ventricular complexes Otherwise normal ECG No previous ECGs available Confirmed by Deyvi Gongora ([id number]) on 08/01/2022 1:18:54 PM Referred By: REFERRED SELF Confirmed By:Deyvi Gongora
[2022-08-01] MEDS ORDERED: lisinopril 20 MG TAB PO STA (18:50)
[2022-08-01] MEDS ORDERED: MELATONIN 3 MG TAB PO PRN (20:26)
[2022-08-01] MEDS ORDERED: lisinopril 20 MG TAB PO SCH (21:00)
[2022-08-01] MEDS ORDERED: LORazepam 2 MG/1 ML VIAL IV PRN (22:30)
--- NOTE | 2022-08-01 22:53 | Hospitalist Progress Note ---
Date of Service August 01, 2022 Assessment & Plan (1) Alcohol use disorder: Plan: Syncope: Plan: Suspect due to alcohol use in setting of infection CT head EKG unremarkable No seizure like activity vitals have improved/ resumed lisinopril Monitor for recurrence (2) Sepsis: Plan: Meets SIRS criteria on evaluation in the ER with Temp 38.1 degrees celsius and HR 112 ?source parainfluenza virus vs. bacterial PNA Procalcitonin 3.83 - give high risk with alcohol use will cover for aspiration and PNA with Unasyn and azithromycin Follow up blood cultures MRSA swab to assess need to cover for this will recheck c xray and will recheck blood work (3) Alcohol use disorder: Plan: Patient has no interest in quitting. He is awake and not confused with an alcohol level 138.7 mg/dL on admission. Discussed options of withdrawal with benzodiazepines to help him through this vs. using alcohol as inpatient and he wishes to drink alcohol, he also notes previous bad reactions to lorazepam Beer q2h PRN - please have available for patient to self administer as long as he is not becoming more sedated Continue AWSS with notification parameters INR 1.0, Plt 51 continue alcohol intake and will order short acting benzo to help with sleep. (4) Chronic prescription opiate use: Plan: Continue Suboxone to avoid withdrawal (5) Parainfluenza virus infection: Plan: Contact isolation precautions Symptomatic care (6) Hypertension: Plan: resume lisinopril (7) Thrombocytopenia: Plan: Plt 51 ?alcohol use vs parainfluenza virus (8) Elevated AST (SGOT): Plan: Suspect due to alcohol use. Repeat level in AM Plan VTE Prophylaxis - deferred given thrombocytopenia Diet - regular Disposition - admit to med/tele (2) Chronic prescription opiate use: (3) Syncope: (4) Parainfluenza virus infection: (5) Sepsis: (6) Hypertension: (7) Thrombocytopenia: (8) Elevated AST (SGOT): Plan VTE Prophylaxis - deferred given thrombocytopenia Diet - regular Disposition - admit to med/tele Admission and Anticipated Discharge Date Admission Date: July 31, 2022 Subjective Patient reports not ready to quit drinking. Patient reports feeling well. He has no new complaints. Review of Systems Review of Systems: All systems reviewed & are unremarkable except as noted in HPI & below Physical Exam Physical Exam: Constitutional: well developed; Respiratory: normal respiratory effort, lungs clear to auscultation Cardiovascular: RRR, no murmur, no edema Gastrointestinal (Abdomen): normal bowel sounds, soft, nontender, no hepatosplenomegaly Neurologic: moves all extremities and awake; no focal motor deficits and not confused Speech / Cognition: normal speech Motor/Sensory: no pronator drift Psychiatric: A+Ox3, euthymic affect Genitourinary: no CVA tenderness Results & Data Results & Data Vital Signs (Past 12 Hours) Vital Signs Temp Pulse Pulse Resp BP Pulse Ox O2 Del Method 08/01/22 19:00 36.9 C 61 18 163/90 H 95 Room Air 08/01/22 17:48 56 L 08/01/22 16:24 36.7 C 52 L 19 165/87 H 96 Room Air 08/01/22 12:13 36.8 C 48 L 17 158/81 H 96 Room Air PG Care Time/CCT Total # of Minutes Spent Total Time Spent with Patient: Total time spent is greater than 50% in coordination of care (as documented) at patient's floor/unit and/or counseling patient: Coding Level of Care Code 82040 SUB INP/OBS CARE 2/35MIN Diagnoses Alcohol use disorder F10.90 Chronic prescription opiate use Z79.891 Syncope R55 Parainfluenza virus infection B34.8 Sepsis A41.9 Hypertension I10 Thrombocytopenia D69.6 Elevated AST (SGOT) R74.01
[2022-08-02] MEDS: AMPICILLIN/SULBACTAM SOD 3,000 MG in 0.9 % SODIUM CHLORIDE 100 ML IV SCH ×2 (03:48→11:13)
[2022-08-02] MEDS: BEER 1 CAN PO PRN ×2 (07:56→11:32)
[2022-08-02 08:08] LABS: Albumin Globulin Ratio 1.1 (0.9-2); Albumin Level 3.7 gm/dl (3.4-5.0); BUN Creatinine Ratio 6.2 (10-20); Bilirubin,Total 1.1 mg/dl (0.2-1.0); C Reactive Protein 7.04 mg/dl (0-0.5); Calcium 8.9 mg/dl (8.6-10.3); Creatinine Clr Calc Pharmacy 136.6 ml/min; Est GFR (African American) 138.1 ml/min; Est GFR (Non-African American) 119.2 ml/min; Globulin 3.4 gm/dl (2.5-4.0); Potassium 3.4 mmol/L (3.5-5.1); Total Protein 7.1 gm/dl (6.0-8.3)
[2022-08-02 08:26] LABS: Basophils # (auto) 0.01 K/uL (0-0.2); Basophils % (auto) 0.1 %; Hematocrit (blood only) 39.2 % (42.0-52.0); Immature Granulocytes % (auto) 0.9 %; Lymphocytes # (auto) 0.55 K/uL (1.2-3.4); Lymphocytes % (auto) 4.8 %; Mean Corpuscular Hemoglobin 34.8 pg (25.0-34.0); Mean Corpuscular Hgb Conc 35.7 g/dL (32.0-36.0); Mean Corpuscular Volume 97.5 fL (80.0-100.0); Mean Platelet Volume 13.4 fL (9.4-12.4); Monocytes % (auto) 6.1 %; Neutrophils # (auto) 10.03 K/uL (1.40-6.50); Neutrophils % (auto) 88.1 %; Platelet Count 54 K/uL (130-400); Platelet Estimate Decreased (Normal); RDW Coefficient of Variation 11.9 % (11.5-14.5); RDW Standard Deviation 42.4 fL (36.4-46.3); Red Blood Count 4.02 M/uL (4.70-6.10); White Blood Count 11.39 K/ul (4.8-10.8)
[2022-08-02] MEDS: AZITHROMYCIN 250 MG TAB PO SCH (09:16)
[2022-08-02] MEDS: MONTELUKAST SODIUM 10 MG TABLET PO SCH (09:16)
[2022-08-02] MEDS: BUPRENORPHINE/NALOXONE 8/2 MG TAB SL SCH (09:16)
[2022-08-02] MEDS: THIAMINE HCL 200 MG in SODIUM CHLORIDE 0.9% 50 ML IV SCH (09:25)
[2022-08-02] MEDS ORDERED: OPTIRAY 320 100ml IV ONE (10:25)
--- NOTE | 2022-08-02 11:22 | CT Scan Report ---
CT OF THE CHEST WITH IV CONTRAST CLINICAL HISTORY: Sepsis ? source. COMPARISON STUDY: Chest CT June 14, 2021 and chest radiograph July 31, 2022. TECHNIQUE: Following IV administration of 94 mL of Optiray, helical axial images of the chest were o btained. Sagittal and coronal reconstructions were viewed as well as maximal intensity projections o n an independent 3-D workstation. Automated exposure control was utilized for the study. A dose low ering technique was utilized adhering to the principles of ALARA. FINDINGS: No enlarged axillary, mediastinal or hilar lymph nodes are present. There is mild emphysem a. The size of the heart is normal. There is no pericardial effusion. No pulmonary emboli are identif ied. There is no thoracic aortic dissection. No pneumothorax or pleural effusion is noted. Note is ma de of consolidation and associated groundglass opacity within the anterior basal segment of the left lower lobe. Minimal alveolar opacities within the medial basal segment of the right lower lobe are no jeff. The central airways are patent. There is no cavitation. Abdomen and pelvis CT will be reported s eparately. There is hepatic steatosis. IMPRESSION: 1. Moderate consolidation within the anterior basal segment of the left lower lobe consistent with pn eumonia. Mild alveolar opacities within the medial basal segment of the right lower lobe which are al so infectious. 2. No pleural effusion. No cavitation. 3. Mild emphysema. ACT 112: Negative or not required by law. Electronically signed by: Kilo Montgomery M.D. 08/02/2022 11:21 AM
--- NOTE | 2022-08-02 11:25 | CT Scan Report ---
ABDOMEN AND PELVIS CT WITH IV CONTRAST CT DOSE: 1149.88 mGy.cm HISTORY: Acute sepsis sepsis, ?source TECHNIQUE: Multiaxial CT images of the abdomen and pelvis were performed following the IV administrat ion of 94 cc of Optiray, A dose lowering technique was utilized adhering to the principles of ALARA. COMPARISON STUDY: 06/14/2021 FINDINGS: Consolidative and groundglass opacities of the anterior basal segment left lower lobe. Mild additional patchy consolidative subsegmental opacities in the basal right lower lobe. No pneumatosis or pneumoperitoneum. The spleen, pancreas, contracted gallbladder and adrenal glands are within norm al limits. Hepatomegaly with hepatic steatosis. Patency of the hepatic and portal veins. Unremarkable kidneys. No hydronephrosis. Partially distended urinary bladder with mild circumferentia l wall thickening. Aorta and IVC are unremarkable. No lymphadenopathy. No bowel obstruction or bowel wall thickening. Trace free pelvic fluid. Mild colonic fecal retention. Normal appendix. Unremarkable soft tissues. No acute fracture. IMPRESSION: 1. Left lower lobe predominant airspace opacities suggestive of pneumonia. 2. No bowel obstruction or bowel wall thickening 3. Hepatic steatosis. ACT 112: Negative or not required by law. The above report was generated using voice recognition software. It may contain grammatical, syntax o r spelling errors. Electronically signed by: Yoandy German M.D. 08/02/2022 11:23 AM
--- NOTE | 2022-08-02 11:51 | Discharge Summary ---
Date of Service August 02, 2022 Admission HPI Per Admitting Provider Freddie Whitfield is a 41 year old male who presents to the ER with a syncopal event earlier today. He does not remember the event but history was taken from his earlier in the day by the ER physician and reports an episode of syncope without seizure-like activity when he when walking to the bathroom. He reports dizziness prior to the syncopal episode. He is unsure if he hit his head but did loose consciousness for seconds. He currently feels mostly back to his normal self although he has been unwell for the last few days with generalized weakness and chills. He denies any sinus pain, worsening nasal congestion (reportedly having for months due to allergies), shortness of breath or cough. No urinary symptoms, nausea, vomiting, abdominal pain or change in bowel habit. He is a current smoker and drinks 12 beers/day. He has not had a significant break in drinking alcohol for years. Reportedly previously been to drug and alcohol rehabilitation but cannot tell me when that was. No prior alcohol withdrawal noted by the patient. Principal Diagnosis Community acquired pneumonia. Discharge Exam Constitutional: well developed; Respiratory: normal respiratory effort, lungs clear to auscultation Cardiovascular: RRR, no murmur, no edema Gastrointestinal (Abdomen): normal bowel sounds, soft, nontender, no hepatosplenomegaly Neurologic: moves all extremities and awake; no focal motor deficits and not confused Speech / Cognition: normal speech Motor/Sensory: no pronator drift Psychiatric: A+Ox3, euthymic affect Genitourinary: no CVA tenderness Discharge Data Allergies Allergy/AdvReac Type Severity Reaction Status Date / Time pollen extracts Allergy Intermediate SNEEZING, Verified 08/01/22 07:37 CONGESTION Consultations 07/31/22 21:05 ED Decision to Admit Stat Ordered Studies 07/31/22 22:02 CT head/brain wo con Stat 08/02/22 09:18 CT abd pelvis IV con only Routine CT chest diagnostic w con Routine Hospital Course (1) Alcohol use disorder: Syncope: Plan: t appears patient had a syncopal episode form his sepsis due to a community acquired pneumonia superimposed with a parainfluenza infection and alcohol use. CT head negative EKG unremarkable No seizure like activity vitals have improved/ resumed lisinopril Procalcitonin is worsening but clinically improving Will recommend checking procalcitonin on Monday. Patient is clinically improving and pushing for discharge. Order ct scan f chest abd/pelvis as initally did not have clear source of infection given his relatively benign chest x ray. But his ct chest confirmed pneumonia. will discharge on 5 additonal days of augmentin and complete 3 days of azithromycin. Patient will complete close to 7 days of treatment. (2) Sepsis: Plan: Meets SIRS criteria on evaluation in the ER with Temp 38.1 degrees celsius and HR 112 as above. (3) Alcohol use disorder: Plan: Patient has no interest in quitting. He is awake and not confused with an alcohol level 138.7 mg/dL on admission. Discussed options of withdrawal with benzodiazepines to help him through this vs. using alcohol as inpatient and he wishes to drink alcohol, he also notes previous bad reactions to lorazepam treated with Beer q2h PRN - patient tolerated this. Continue AWSS with notification parameters INR 1.0, Plt 51 continue alcohol intake and will order short acting benzo to help with sleep. (4) Chronic prescription opiate use: Plan: Continue Suboxone to avoid withdrawal (5) Parainfluenza virus infection: Plan: Contact isolation precautions Symptomatic care (6) Hypertension: Plan: resume lisinopril (7) Thrombocytopenia: Plan: Plt 51 ?alcohol use vs parainfluenza virus (8) Elevated AST (SGOT): Plan: Suspect due to alcohol use. (2) Chronic prescription opiate use: (3) Syncope: (4) Parainfluenza virus infection: (5) Sepsis: (6) Hypertension: (7) Thrombocytopenia: (8) Elevated AST (SGOT): Total Time Total Time Spent Total Time Spent (In Minutes): 32 Discharge Plan Discharge Items Patient Disposition: Home - Self-Care Reason For Visit: PRESYNCOPE, PARAINFLUENZAVIRUS, SIRS Discharge Diagnosis: sepsis Activity: Resume your previous activity Non-emergency contact: Primary Care Provider Call non-emergency contact if: you have any medication questions Follow-up/Referrals: Myles Mack MD [Primary Care Provider] - Diet: Regular Addtl Attending Provider Instructions: Will discharge you on antibiotics,, please complete 5 more days of antibiotics. You will be on augmentin twice a day for 5 more days. You will be on azithromycin for one more day. As you are likely not used to taking medications, something I recommend is to put an alarm on your phone to remind you of taking the antibiotic. Your infection could worsen if you skip doses. Recommend followup with PCP within one week. Please try to limit and cut back from your alcohol drinking as your liver is showing signs of changes from the alcohol. Pending Studies at Discharge: No Stand-Alone Forms: My [facility], Smoking Cessation Medications and DC Order Prescriptions: New azithromycin 250 mg Tablet 500 mg PO QAM Qty: 1 0RF Rx Instructions: take final dose on 08/03 in the AM amoxicillin-pot clavulanate 875-125 mg tablet 1 tab PO BID Qty: 10 0RF Rx Instructions: Take first dose tonight. Continued buprenorphine-naloxone [Suboxone] 8-2 mg film 1 film SL BID docusate sodium [Dulcolax Stool Softener (dss)] 100 mg capsule 100 mg PO QPM Complete Multivitamin Tablet 1 tab PO QPM montelukast [Singulair] 10 mg Tablet 10 mg PO DAILY buprenorphine-naloxone [Suboxone] 8-2 mg Film 1 film BUCCAL DAILY Changed lisinopril 20 mg tablet 20 mg PO PM Qty: 30 0RF Discontinued montelukast 10 mg tablet 10 mg PO QAM Qty: 90 3RF lisinopril 20 mg tablet 20 mg PO QAM Qty: 90 0RF Discharge Orders: Discharge Order (Routine); Ordered 08/02/22 Ordered By: Raul Ruiz Admission Data Admit Date/Time: 07/31/22 21:13 Attending Provider: Raul Ruiz Admit Provider: Jose Monroy Primary Care Provider: Myles Mack Other Providers: Jose Monroy Other Interventions: Discharge Summary Assessment (RN) Last Done: 08/02/22 12:01 Coding Level of Care Code 21071 INP/OBS DISCH >30 MIN Diagnoses Alcohol use disorder F10.90 Chronic prescription opiate use Z79.891 Syncope R55 Parainfluenza virus infection B34.8 Sepsis A41.9 Hypertension I10 Thrombocytopenia D69.6 Elevated AST (SGOT) R74.01
== END 2022-08-02 12:20 | disposition home or self-care (01) | DRG 871 ==
LOC: ED 18:43 → SUATTDRO 21:13 → 2W 21:13 → MERGE 21:13 → 2W 21:35